=== PATIENT | female | born 2000 | race African-American/Black ===

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

== ENCOUNTER 2019-06-03 23:18 | Emergency (ER) | payer MEDICAID, OTHER ==
[~2019-06-03] VITALS: Ht 165.1 cm; Wt 61.2 kg
[2019-06-03 23:30] VITALS: BP 110/67
--- NOTE | 2019-06-03 23:30 | NUR ---
ED Nurse Note: Pt ambulated into ED from home with mother CO pain 8/10 in left thumb d/t injuring thumb while playing rugby earlier today. Pt reports taking motrin at 1500 at home. Pt denies tingling/numbness or loss of sensation to area. VSS no s/s of distress noted. Awaiting ERMD.
--- NOTE | 2019-06-03 23:34 | Emergency Room Report ---
History of Present Illness General Chief Complaint: Upper Extremity Injury Source: Patient Present Illness HPI Disclaimer: Please note that this report is being documented using DRAGON technology. This can lead to erroneous entry secondary to incorrect interpretation by the dictating instrument. HPI: 19-year-old female presents for evaluation of left hand injury. 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 She denies any popping or snapping sensation. Denies any numbness or tingling. She is reporting pain at the base of the left thumb. Is able to flex though with significant pain. Denies significant swelling. She took ibuprofen when the injury originally happened approximately 3 PM. No prior history of hand injury or fracture. No hardware. Also complained of some pain in the left thumb but this may ongoing for 1 month and states she had a hyper extension injury on that went as well but she has full mobility, sensation, strength with some lingering pain over the radial aspect of the right thumb at the MCP J. Denies any new injury to that region. PMH: Denies PSH: Denies Allergies: Denies Social Hx: Denies Allergies: Coded Allergies: No Known Allergies (Unverified , 11/27/15) Patient History Last Menstrual Period: 05/2019 Nursing Documentation-PMH Past Medical History: No Stated History Review of Systems All Other Systems: negative except mentioned in HPI Physical Exam Vital Signs Date Time Temp Pulse Resp B/P (MAP) Pulse Ox O2 Delivery O2 Flow Rate FiO2 06/03/19 23:21 98.1 71 14 105/68 (80) 98 Room Air General: Awake and alert, no acute distress HEENT: NC/AT. EOMI. Resp: Normal work of breathing Skin: Intact. No abrasions, laceration or rash over the exposed skin MSK: Normal tone and bulk. Moving all extremities. No obvious deformity. All digits on the right and left hand have brisk capillary refill less than 2 seconds and appear normally perfused. Sensation is grossly intact of the radial and ulnar aspect of all digits. There is tenderness palpation over the dorsal aspect of the MCP J on the thumb. No tenderness over the anatomic snuffbox. Able to flex and extend the left thumb. No significant edema or swelling noted. No tenderness over the MPJ. The right hand has full range of motion in all digits, full strength sensation. No inducible tenderness on palpation, no edema. Neuro: Awake and alert. Mentating appropriately Medical Decision Making Diagnostic Impression: Primary Impression: Left thumb sprain ER Course 19-year-old female presents for evaluation of left hand pain after a rugby injury. Differential includes was not limited to fracture, ligamentous injury, strain, sprain. X-ray was obtained. No fracture identified. The patient was placed in a left thumb spica removable splint for comfort and stability. We will follow-up with her senior animal trainer to discuss further care. Prescribed Motrin for pain and swelling. Gave 1 dose of Motrin in the ED. She can follow-up with senior animal trainer and PMD or orthopedic care clinic as needed. Other X-Ray Diagnostic Results Other X-Ray Diagnostic Results : X-Ray ordered: Left thumb # of Views/Limited Vs Complete: Complete Indication: Pain Interpretation: no dislocation, no soft tissue swelling, no fractures Impression: No acute disease Electronically Signed by: Electronically signed by Dr. Donny Wong Last Vital Signs Date Time Temp Pulse Resp B/P (MAP) Pulse Ox O2 Delivery O2 Flow Rate FiO2 06/03/19 23:21 98.1 71 14 105/68 (80) 98 Room Air Disposition: HOME, SELF-CARE Condition: Stable Scripts Ibuprofen* (MOTRIN*) 600 Mg Tablet 600 MG ORAL Q8H PRN for For Pain, #30 TAB 0 Refills Prov: Donny Wong MD 06/03/19 Donny Wong MD Jun 03, 2019 23:34
--- NOTE | 2019-06-03 23:37 | NUR ---
ED Nurse Note: ERMD at bedside
--- NOTE | 2019-06-03 23:45 | NUR ---
ED Nurse Note: xray at bedside
--- NOTE | 2019-06-03 23:50 | NUR ---
ED Nurse Note: electrical tech/project manager at bedside for splint application to left thumb
[2019-06-03] MEDS ORDERED: IBUPROFEN600 MG ORAL (23:54)
--- NOTE | 2019-06-03 23:58 | NUR ---
ED Nurse Note: All medications administered, pt tolerated well no s/s of distress noted.
[2019-06-04 00:01] VITALS: BP 110/68
--- NOTE | 2019-06-04 00:01 | NUR ---
ER DISCHARGE NOTE: Patient is cleared to be discharged home with mother per ERMD, pt is aox4, on room air, with stable vital signs. pt was given dc and prescription instructions, pt was able to verbalize understanding, pt id band removed. pt is able to ambulate with steady gait. pt took all belongings.
--- NOTE | 2019-06-04 00:18 | Diagnostic Imaging Report ---
EXAM: XR Left Hand Complete, 3 or More Views CLINICAL HISTORY: INJ TECHNIQUE: Frontal, lateral and oblique views of the left hand. COMPARISON: No relevant prior studies available. FINDINGS: Bones/joints: Unremarkable. No acute fracture. No dislocation. Soft tissues: Unremarkable. No radiopaque foreign body. IMPRESSION: Normal left hand x-rays.
== END 2019-06-04 00:01 | disposition home or self-care (01) ==
LOC: EMR 23:37
DX: S63.602A Unspecified sprain of left thumb, initial encounter (principal); Y93.63 Activity, rugby; Y92.9 Unspecified place or not applicable
CPT/HCPCS: 73130; Z7502; 99283